=== PATIENT | male | born 1960 | race Caucasian/White ===

== ENCOUNTER 2021-02-20 13:16 | Emergency (ER) | payer OTHER, BC, SELFPAY ==
--- NOTE | ~2021-02-20 | XR_ITS ---
EXAMINATION: XR foot LT min 3V DATE: 02/20/2021 14:11 INDICATION: Left foot pain TECHNIQUE: Dorsoplantar, lateral, and 2 oblique views of the left foot were obtained. COMPARISON: 04/17/2010 FINDINGS: Bone alignment is normal. There is no fracture. 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 There is fusion at the third proximal i nterphalangeal joint. The soft tissues are unremarkable. Posterior and plantar calcaneal enthesophyte s are noted. There is mild osteoarthritis of the midfoot. IMPRESSION: 1. No acute osseous abnormality. Reviewed, dictated and finalized at location A. [employer]
[2021-02-20 13:29] VITALS: BP 122/78; PULSE 70; RESP 16; TEMP 36.9; O2SAT 97
--- NOTE | 2021-02-20 13:44 | ED.GENADULT ---
HPI - General Adult General Chief complaint: Extremity Injury, Lower Stated complaint: left foot pain Source: patient Mode of arrival: ambulatory Limitations: no limitations History of Present Illness HPI narrative: Patient is a 60-year-old male who presents to the [facility] via POV for evaluation of left foot pain that began yesterday after standing on a ladder. 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 He reports pain is intermittent and throbbing and stabbing in nature. Pain is better with sitting and worsens with weightbearing. Related Data Home Medications Medication Instructions Recorded Confirmed allopurinol 300 mg PO DAILY 02/20/21 02/20/21 Allergies Allergy/AdvReac Type Severity Reaction Status Date / Time No Known Allergies Allergy Mild Verified 02/20/21 13:36 Review of Systems Review of Systems: Pertinent negatives: Injury, fever, chills, sweats, change in appetite, poor p.o. intake, malaise, calf tenderness, skin color changes, rash, warmth, swelling, numbness, tingling, loss of sensation, deformity, decreased range of motion, weakness, difficulty with ambulation/coordination, nausea, vomiting, lymphadenopathy, shortness of breath, chest pain, heart palpitations, and heart murmur. [facility] Past Medical History Medical History (Updated 02/20/21 @ 14:24 by FITZ Hardy, ) Gout Comments I have reviewed and agree with the patient's past medical, surgical, social, and family hx as documented by the RN. There is no relevant family history pertinent to the presenting complaint. Exam Narrative: GENERAL: Well-appearing, well-nourished, and in no acute distress. Appears uncomfortable. HEAD: Normocephalic, atraumatic. NECK: Supple. No Lymphadenopathy or nuchal rigidity appreciated. CHEST: Bilateral lung piña are clear to auscultation. No respiratory distress. No evidence of cough or pleuritic cp upon examination. HEART: Regular rate and rhythm. No murmur, gallop, or rub heard. EXTREMITIES: Moderate pain palpated over lateral aspect of plantar surface of left foot. No evidence of injury, decreased ROM, swelling, cyanosis, hematoma, laceration, abrasion, deformity, rash, or puncture. No evidence of pain with active/passive ROM. No evidence of dislocation, ligament laxity, effusion, or pain at rest. Pulses palpable at 2+, strength 5/5, and cap refill < 3 seconds in affected extremity. DTRs normal. Ambulates with left-sided limp. Gait is slowed. SKIN: Warm, dry, no rash. NEURO: No focal deficits. Alert and oriented x3. SPECIAL OBSERVATIONS: Smiling. Laughing. Course Vital Signs Vital signs: Vital Signs Temperature 98.5 F 02/20/21 13:29 Pulse Rate 70 02/20/21 13:29 Respiratory Rate 16 02/20/21 13:29 Blood Pressure 122/78 02/20/21 13:29 Pulse Oximetry 97 02/20/21 13:29 Temperature 98.5 F 02/20/21 13:29 Pulse Rate 70 02/20/21 13:29 Respiratory Rate 16 02/20/21 13:29 Blood Pressure 122/78 02/20/21 13:29 Pulse Oximetry 97 02/20/21 13:29 Reviewed Medical Decision Making Differential Diagnosis Differential Diagnosis: Sprain, strain, cellulitis, open fracture, closed fracture, gout Medical Records Medical records reviewed: Yes I reviewed the external patient's medical records. Vital Signs Vital Signs: Vital Signs Temperature 98.5 F 02/20/21 13:29 Pulse Rate 70 02/20/21 13:29 Respiratory Rate 16 02/20/21 13:29 Blood Pressure 122/78 02/20/21 13:29 Pulse Oximetry 97 02/20/21 13:29 Temperature 98.5 F 02/20/21 13:29 Pulse Rate 70 02/20/21 13:29 Respiratory Rate 16 02/20/21 13:29 Blood Pressure 122/78 02/20/21 13:29 Pulse Oximetry 97 02/20/21 13:29 Imaging Data Attestation: I personally reviewed and interpreted this imaging study as follows: My impression: Negative Radiologist's impression: No acute osseous abnormality Critical Care Time Critical Care Time Critical Care Ti
== END 2021-02-20 14:27 | disposition home or self-care (01) ==
PROVIDERS: Emergency Provider Nurse Practitioner Family; PCP Family Medicine
DX: M79.672 Pain in left foot (principal)
CPT/HCPCS: 73630; 99213; G0463

== ENCOUNTER → 2021-06-28 11:59 | Outpatient (CLI) | payer OTHER, SELFPAY ==
--- NOTE | ~2021-06-28 | MR_ITS ---
EXAMINATION: MR lower leg LT wo con DATE: 06/28/2021 13:17 INDICATION: Rupture of the left Achilles tendon with posterior upper left calf pain post injury with audible pop TECHNIQUE: Magnetic resonance imaging (MRI) of the left lower leg was performed without intravenous c ontrast. A marker was placed over the region of maximal pain. Sequences included axial and sagittal and coronal T1-weighted FSE and fluid sensitive FSE STIR. COMPARISON: None. FINDINGS: Small amount of fluid extends along a tear of tendon and distal myotendinous junction of the medial h ead of the gastrocnemius. The tear extends approximately 9 cm craniocaudally and involves nearly the entire width of the myotendinous junction. there is mild feathery muscular edema in the adjacent medi al head of the gastrocnemius. Remaining muscles and tendons of left calf are unremarkable. The more d istal Achilles tendon is normal. There is normal bone marrow signal throughout. IMPRESSION: 1. Moderate grade strain with relatively large partial tear along the distal myotendinous junction of the medial head of the gastrocnemius. Reviewed, dictated and finalized at location A. IMPRESSION: 1. Moderate grade strain with relatively large partial tear along the distal my otendinous junction of the medial head of the gastrocnemius.
== END ==
PROVIDERS: PCP Family Medicine; Visit Provider Family Medicine
DX: S86.012A Strain of left Achilles tendon, initial encounter (principal)
CPT/HCPCS: 73718

== ENCOUNTER 2022-04-25 12:26 | Emergency (ER) | payer BC, SELFPAY ==
--- NOTE | ~2022-04-25 | XR_ITS ---
EXAMINATION: XR ankle LT min 3V DATE: 04/25/2022 13:39 INDICATION: Lateral left ankle pain. TECHNIQUE: Anteroposterior, oblique, mortise, and lateral views of the left ankle were obtained. COMPARISON: Left foot radiograph dated 02/20/2021 and left foot and ankle radiographs dated 04/17/2010 FINDINGS: Alignment is normal. No fracture. Small heterotopic ossicle along the medial malleolus which may rep resent sequela of chronic medial ankle sprain. Couple chronic tiny phleboliths in the subcutaneous ti ssues along the lateral ankle and distal calf. Mild osteoarthritis at several joints in the midfoot. No left ankle joint effusion. Small to moderate-sized plantar calcaneal spur. IMPRESSION: 1. No left ankle joint effusion or acute osseous abnormality. Reviewed, dictated and finalized at location A. [employer]
[2022-04-25 12:36] VITALS: BP 132/82; PULSE 76; RESP 12; TEMP 36.3; O2SAT 96
--- NOTE | 2022-04-25 13:17 | ED.LOWEXIN ---
HPI - Extremity Injury (Lower) General Chief Complaint: Extremity Injury, Lower Stated Complaint: left foot pain Time Seen by Provider: 04/25/22 13:08 Source: patient Mode of arrival: other (knee scooter) Limitations: no limitations History of Present Illness HPI Narrative: Patient presents today complaining of left foot/ankle pain. He was walking yesterday and felt a pop in his left lateral foot and ankle area. Denies numbness or tingling to the leg or foot. He currently rates his pain 10/10, which is only present with weight-bearing. He has applied ice without relief. He has not tried any [id number] medication for symptoms prior to arrival. Related Data Home Medications Medication Instructions Recorded Confirmed No Home Medications 04/25/22 04/25/22 Allergies Allergy/AdvReac Type Severity Reaction Status Date / Time No Known Allergies Allergy Mild Verified 02/20/21 13:36 Review of Systems Review of Systems: CONSTITUTIONAL: Denies body aches, fever, chills, or sweats. EYES: Denies visual changes, redness, or discharge. ENT: Denies rhinorrhea, congestion, sore throat, or otalgia. CARDIOVASCULAR: Denies chest pain, palpitations, or edema. RESPIRATORY: Denies cough or dyspnea. GASTROINTESTINAL: Denies abdominal pain, nausea, vomiting, or diarrhea. GENITOURINARY: Denies dysuria or hematuria. SKIN: Denies rash, itching, or wounds. MUSCULOSKELETAL: Denies back pain, or myalgia.+ left foot and ankle pain NEUROLOGIC: Denies headache, numbness, tingling, or weakness. PSYCH: Denies depression or anxiety. [facility] Past Medical History Medical History Gout Comments At time of signature, I have reviewed and agree with nursing past medical, surgical, social and family history unless otherwise noted. Please see nursing chart for further information. There is no relevant family history pertinent to the presenting complaint Exam Narrative: GENERAL: Well-appearing, well-nourished, and in no acute distress. HEAD: Normocephalic, atraumatic. EYES: EOMI. No redness or drainage. Conjunctivae normal. ENT: Mucous membranes pink and moist. NECK: Normal AROM. CHEST: No respiratory distress. EXTREMITIES: Left foot and ankle: Approximately 4 x 3 cm area of soft tissue tenderness and mild edema just underneath the lateral malleolus. No bony tenderness. Distal sensation intact. Capillary refill normal. Pedal pulse normal. Full range of motion without pain, except internal rotation. SKIN: Warm, dry, no rash. Capillary refill normal. Normal skin turgor. NEURO: No focal deficits. Alert and oriented x3. PSYCH: Normal affect. No signs of depression or anxiety. Course Course Level of Care: Express Care Visit Vital Signs Vital signs: Vital Signs Temperature 97.4 F L 04/25/22 12:36 Pulse Rate 76 04/25/22 12:36 Respiratory Rate 12 04/25/22 12:36 Blood Pressure 132/82 04/25/22 12:36 Pulse Oximetry 96 04/25/22 12:36 Oxygen Delivery Room Air 04/25/22 12:36 Temperature 97.4 F L 04/25/22 12:36 Pulse Rate 76 04/25/22 12:36 Respiratory Rate 12 04/25/22 12:36 Blood Pressure 132/82 04/25/22 12:36 Pulse Oximetry 96 04/25/22 12:36 Oxygen Delivery Room Air 04/25/22 12:36 Reviewed. Pt has been instructed to follow up with his PCP regarding his elevated blood pressure today. MDM - Extremity Injury (Lower) Differential Diagnosis Differential diagnosis: Likely ankle sprain and strain, ankle fracture and other (Sprain, foot fracture) Imaging Data Radiologist's impression: ITS Impressions Ankle X-Ray 04/25/22 13:48 IMPRESSION: 1. No left ankle joint effusion or acute osseous abnormality. Critical Care Time Critical Care Time Critical Care Time: No Discharge Plan Discharge Clinical Impression: Left ankle sprain Qualifiers: Encounter type: initial encounter Involved ligament of ankle: unspecifie
== END 2022-04-25 14:27 | disposition home or self-care (01) ==
PROVIDERS: Emergency Provider Nurse Practitioner; PCP Family Medicine
DX: S93.402A Sprain of unspecified ligament of left ankle, initial encounter (principal); X50.9XXA Other and unspecified overexertion or strenuous movements or postures, initial encounter
CPT/HCPCS: 73610; 99213; G0463